=== PATIENT | female | born 1990 | race Caucasian/White ===

== ENCOUNTER 2019-07-20 11:00 | Emergency (ER) | payer OTHER, BC, SELFPAY ==
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
[2019-07-20 11:09] VITALS: BP 156/78; PULSE 123; RESP 20; TEMP 37.1; O2SAT 100
[2019-07-20 11:30] VITALS: BP 119/69; PULSE 93; RESP 16; O2SAT 100
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
[2019-07-20 13:00] VITALS: BP 119/90; PULSE 93; RESP 20; O2SAT 100
[2019-07-20 14:00] VITALS: BP 127/70; PULSE 88; RESP 18; O2SAT 100
[2019-07-20 14:10] LABS: Estimated CRCL calculation 144 ml/min; Estimated Glomerular Filt Rate > 60
[2019-07-20 15:00] VITALS: BP 143/87; PULSE 90; RESP 16; O2SAT 98
== END 2019-07-20 15:00 | disposition home or self-care (01) ==
PROVIDERS: Emergency Provider Emergency Medicine; PCP Family Medicine
DX: S16.1XXA Strain of muscle, fascia and tendon at neck level, initial encounter (principal); S39.012A Strain of muscle, fascia and tendon of lower back, initial encounter; S80.02XA Contusion of left knee, initial encounter; J45.909 Unspecified asthma, uncomplicated; V43.52XA Car driver injured in collision with other type car in traffic accident, initial encounter
CPT/HCPCS: 36415; 71101; 72125; 72132; 73562; 73610; 74177; 81025; 96365; 99284; J0131; Q9967

== ENCOUNTER 2019-08-12 13:08 | Outpatient (CLI) | payer BC, SELFPAY ==
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
== END 2019-08-12 13:09 | disposition home or self-care (01) ==
PROVIDERS: PCP Family Medicine; Visit Provider Student in an Organized Health Care Education/Training Program
DX: N63.0 Unspecified lump in unspecified breast (principal); N60.01 Solitary cyst of right breast
CPT/HCPCS: 76641

== ENCOUNTER 2019-09-04 17:30 | Outpatient (CLI) | payer OTHER, BC, SELFPAY ==
--- NOTE | ~2019-09-04 | MR_ITS ---
EXAMINATION: MR cervical spine wo con DATE: 09/04/2019 18:15 INDICATION: Neck and shoulder pain. TECHNIQUE: Magnetic resonance imaging (MRI) of the cervical spine was performed without intravenous c ontrast. Sequences included sagittal T2-weighted FSE, sagittal STIR FSE, sagittal T1-weighted FSE, ax ial MERGE, and axial T2-weighted FSE. COMPARISON: CT cervical spine 07/20/2019 FINDINGS: Bone alignment is normal. Vertebral body heights and intervertebral disc heights are normal . The spinal cord signal intensity is normal. The following disc levels are specifically discussed: C2-C3 through C6-C7: The disc does not extend beyond the endplate margin. There is no uncovertebral j oint osteoarthritis. There is no facet joint osteoarthritis. There is no neural foraminal stenosis. T here is no central canal stenosis. C7-T1: The disc does not extend beyond the endplate margin. There is no uncovertebral joint osteoarth ritis. There is mild bilateral facet joint osteoarthritis. There is no neural foraminal stenosis. The re is no central canal stenosis. IMPRESSION: 1. 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 Reviewed, dictated and finalized at location E.
== END 2019-09-04 17:31 | disposition home or self-care (01) ==
LOC: ANHIMG 17:31
PROVIDERS: PCP Family Medicine; Visit Provider Physician Assistant
DX: M50.323 Other cervical disc degeneration at C6-C7 level (principal)
CPT/HCPCS: 72141

== ENCOUNTER 2019-09-09 16:35 | Outpatient (CLI) | payer OTHER, BC, SELFPAY ==
--- NOTE | ~2019-09-09 | MR_ITS ---
EXAMINATION: MR shoulder LT wo con DATE: 09/09/2019 17:08 INDICATION: Left shoulder pain. TECHNIQUE: Magnetic resonance imaging (MRI) of the left shoulder was performed without intravenous co ntrast. Sequences included axial PD-weighted FS FSE, coronal oblique PD-weighted FS FSE and T2-weight ed FS FSE, and sagittal oblique T2-weighted FS FSE and T1-weighted FSE. COMPARISON: None. FINDINGS: Coracoacromial arch: The acromion undersurface is curved in morphology with anterior hook (type III). The acromioclavicula r joint demonstrates tiny osteophytes. No subacromial/subdeltoid bursitis. Rotator cuff: There is mild supraspinatus and infraspinatus tendinopathy. Teres minor tendon is normal. Subscapular is tendon is normal. No tear. There is no asymmetric fatty atrophy of the rotator cuff muscle bellies . Biceps tendon and glenoid labrum: Biceps tendon is in bicipital groove. Intra-articular biceps tendon is normal. The glenoid labrum is intact. Fluid: There is no glenohumeral joint effusion. Bones/cartilage: Glenoid cartilage is normal. Humeral head cartilage is normal. IMPRESSION: 1. Mild rotator cuff tendinopathy. No tear. 2. Mild acromioclavicular joint osteoarthritis. Reviewed, dictated and finalized at location A.
== END 2019-09-09 16:36 | disposition home or self-care (01) ==
PROVIDERS: PCP Family Medicine; Visit Provider Physician Assistant
DX: M25.519 Pain in unspecified shoulder (principal); M54.2 Cervicalgia; M19.012 Primary osteoarthritis, left shoulder
CPT/HCPCS: 73221

== ENCOUNTER 2020-08-06 07:32 | Outpatient (CLI) | payer BC, SELFPAY ==
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
== END 2020-08-06 07:33 | disposition home or self-care (01) ==
PROVIDERS: PCP Family Medicine; Visit Provider Obstetrics & Gynecology
DX: R19.01 Right upper quadrant abdominal swelling, mass and lump (principal)
CPT/HCPCS: 76642

== ENCOUNTER 2021-04-12 00:46 | Emergency (ER) | payer BC, SELFPAY ==
--- NOTE | 2021-04-12 00:50 | PC.NURSE ---
Pt c/o itching and hives every night x 3 nights, along with nvd. skin pink/dry. Speech clear. Resps even, nonlabored without wheezing noted. 

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
== END 2021-04-12 01:22 | disposition left against medical advice (07) ==
LOC: ANHED 01:21
PROVIDERS: PCP Family Medicine
DX: Z53.21 Procedure and treatment not carried out due to patient leaving prior to being seen by health care provider (principal)
CPT/HCPCS: 99199

== ENCOUNTER 2021-07-29 04:50 | Emergency (ER) | payer BC, SELFPAY ==
--- NOTE | ~2021-07-29 | XR_ITS ---
EXAMINATION: XR chest 2V DATE: 07/29/2021 07:03 INDICATION: Cough and right-sided chest pain TECHNIQUE: PA and lateral views of the chest are obtained. COMPARISON: 04/08/2005 FINDINGS: The lungs are free of acute opacities. There is no pleural effusion or pneumothorax. The ca rdiomediastinal silhouette is normal. The visualized bones and soft tissues are unremarkable. IMPRESSION: 1. No acute cardiopulmonary abnormality. Reviewed, dictated and finalized at location A.
[2021-07-29 04:57] VITALS: BP 122/74; PULSE 98; RESP 18; TEMP 36.7; O2SAT 100
[2021-07-29 05:37] LABS: Alanine Aminotransferase 26 U/L (4-35); Albumin Level 4.7 g/dL (3.5-5.1); Alkaline Phosphatase 85 U/L (38-126); Anion Gap 11 mmol/L (8-16); Appearance Urine Clear (Clear); Aspartate Amino Transferase 26 U/L (14-36); Bilirubin Urine Negative (Negative); Blood Urea Nitrogen 8 mg/dL (7-17); Blood Urine Negative (Negative); Calcium 9.2 mg/dL (8.4-10.2); Carbon Dioxide 24 mmol/L (22-30); Chloride 102 mmol/L (98-107); Color Urine Yellow (Yellow); Estimated CRCL calculation 136 ml/min; Estimated Glomerular Filt Rate > 60; Glucose 126 mg/dL (65-110); Glucose Urine UA Negative (Negative); Ketones Urine Negative (Negative); Leukocyte Esterase Ur Negative LEU/UL (Negative); Nitrate Urine Negative (Negative); Potassium 3.6 mmol/L (3.4-5.0); Protein Urine 1+ mg/dL (Negative); Sodium 137 mmol/L (137-145); Urobilinogen Urine 0.2 mg/dL (<2.0)
[2021-07-29 05:43] LABS: Mucus Urine Heavy /lpf; Squamous Epithelial Cell Urine Many /hpf (Few); WBC Urine 0-3 /hpf
[2021-07-29 05:44] LABS: Basophils Percent Auto 0.2 % (0.2-1.2); Eosinophils Percent Auto 0.2 % (0-4.4); Hematocrit 35.6 % (37.0-47.0); Hemoglobin 12.3 g/dL (12.0-15.0); Immature Granulocyte Percent A 0.5 % (0-0.5); Lymphocytes Absolute Auto 1.73 K/mm3 (0.9-3.2); Lymphocytes Percent Auto 9.2 % (18.3-44.2); Mean Corpuscular HGB Conc 34.6 g/dl (32-36); Mean Corpuscular Hemoglobin 31.6 pg (26-34); Mean Corpuscular Volume 91.5 fl (80-100); Mean Platelet Volume 10.6 fl (7.4-10.4); Monocytes Absolute Auto 1.7 K/mm3 (0.1-0.6); Monocytes Percent Auto 8.9 % (2.6-8.5); Neutrophils Absolute Auto 15.2 K/mm3 (1.3-6.7); Platelet Count Result 270 k/mm3 (150-375); Red Blood Count 3.89 M/mm3 (4.2-5.4); Red Cell Distribution Width 11.3 % (11.5-14.5); White Blood Count 18.8 K/mm3 (4.5-10.0)
[2021-07-29 05:50] LABS: Add Urine Microscopic? YES
[2021-07-29 06:02] VITALS: BP 120/75; PULSE 97; RESP 18; O2SAT 100
[2021-07-29 06:06] VITALS: O2SAT 100
--- NOTE | 2021-07-29 06:52 | ED.GENADULT ---
HPI - General Adult General Chief complaint: Back Pain/Injury <Jacob Thakur DO - Last Filed: 07/29/21 07:13> Stated complaint: Back Pain <Jacob Thakur DO - Last Filed: 07/29/21 07:13> Time Seen by Provider: 07/29/21 06:47 <Jacob Thakur DO - Last Filed: 07/29/21 07:13> Source: patient <Jacob Thakur DO - Last Filed: 07/29/21 07:13> Mode of arrival: ambulatory <Jacob Thakur DO - Last Filed: 07/29/21 07:13> Limitations: no limitations <Jacob Thakur DO - Last Filed: 07/29/21 07:13> History of Present Illness HPI narrative: 30-year-old female presents emergency room secondary cough congestion. She is complaining of significant pain to the right lateral and posterior chest wall area. Hurts worse when she moves or coughs. Been having chills and fevers. She has been vaccinated for COVID. She states that her child's daycare there are 5 children who are sick with what they said was flu . <Jacob Thakur DO - Last Filed: 07/29/21 07:13> Related Data Allergies/adverse reactions: Allergies Allergy/AdvReac Type Severity Reaction Status Date / Time No Known Allergies Allergy Unknown Uncoded 07/29/21 06:08 <Jacob Thakur DO - Last Filed: 07/29/21 07:13> Review of Systems Review of Systems: CONSTITUTIONAL: Having fevers as well as diffuse body aches EYES: Denies visual changes, redness, or discharge. ENT: Denies rhinorrhea, congestion, sore throat, or otalgia. CARDIOVASCULAR: Denies chest pain, palpitations, or edema. RESPIRATORY: Cough with pain to the right side of the chest GASTROINTESTINAL: Denies abdominal pain, nausea, vomiting, or diarrhea. GENITOURINARY: Denies dysuria or hematuria. SKIN: Denies rash or itching. MUSCULOSKELETAL: Denies back pain, joint pain, or myalgia. NEUROLOGIC: Denies headache, numbness, or weakness. PSYCHIATRIC: Denies anxiety or depression. <Jacob Thakur DO - Last Filed: 07/29/21 07:13> PMFSH Past Medical History Medical History: Medical History (Updated 07/29/21 @ 07:10 by Jacob Thakur DO) History of asthma <Jacob Thakur DO - Last Filed: 07/29/21 07:13> Family History Family History: Family History Mother Family history of thyroid disease Sibling Family history of thyroid disease Father Family history of obesity Hypertension Grandparent Hypertension Family history of cardiovascular disease Family history of malignant neoplasm Other No family history of hypertension No family history of malignant neoplasm <Jacob Thakur DO - Last Filed: 07/29/21 07:13> Social History Social History: Social History Alcohol intake: never Substance use: never Gender identity (if verbalized by the patient): Female <Jacob Thakur DO - Last Filed: 07/29/21 07:13> Exam Narrative: APPEARANCE: Ill-appearing Head normocephalic and atraumatic. EYES: PERRLA/EOMI, conjunctivae very clear. NOSE: Normal with no drainage EARS:TMS clear [place], with good light reflex. THROAT: Pharynx clear, no exudate. NECK: Supple. No adenopathy, no masses. RESPIRATORY: Airway patent, respirations nonlabored. Scattered rhonchi in the right mid to lower lung pearson. CARDIOVASCULAR: Regular rate and rhythm without murmurs, rubs, or gallops. ABDOMINAL: Soft, nontender, nondistended, no hepatosplenomegaly Musculoskeletal: Moves all extremities. Strength/ROM intact, No edema, No calf tenderness. NEURO: Alert. Cranial nerves II through XII intact. Normal gait. Good coordination. Nonfocal examination. SKIN:: Warm, dry. Normal Color PSYCHIATRIC: Normal affect/mood, normal interaction <Jacob Thakur DO - Last Filed: 07/29/21 07:13> Course Course Emergency Course: I did not take over patient's care. I did not take part in care for this visit. Patient evaluated and treated by
[2021-07-29] MEDS: KETOROLAC 30 MG/ML VIAL (*BKC) IV PUSH (07:19)
[2021-07-29 07:22] VITALS: BP 122/70; PULSE 90; RESP 18; O2SAT 97
[2021-07-29 08:43] LABS: SARS-CoV-2 RNA PCR Negative
== END 2021-07-29 07:30 | disposition home or self-care (01) ==
PROVIDERS: Emergency Provider Emergency Medicine; PCP Family Medicine
DX: J18.9 Pneumonia, unspecified organism (principal); Z20.822 Contact with and (suspected) exposure to COVID-19; J45.909 Unspecified asthma, uncomplicated
CPT/HCPCS: 36415; 71046; 80053; 81001; 81025; 85025; 96374; 99284; C9803; J1885; U0003; U0005

== ENCOUNTER 2022-04-11 11:24 | Emergency (ER) | payer BC, SELFPAY ==
[2022-04-11 11:36] VITALS: BP 127/78; PULSE 84; RESP 18; TEMP 36.2; O2SAT 99
--- NOTE | 2022-04-11 12:51 | ED.URI ---
HPI - URI/Sore Throat General Chief Complaint: Upper Respiratory Infection Stated Complaint: Cough,Congestion,Bilateral Ear Irritation Time Seen by Provider: 04/11/22 12:51 Source: patient, RN notes reviewed and old records reviewed Mode of arrival: ambulatory Limitations: no limitations History of Present Illness HPI Narrative: 31-year-old female presents to the [facility] with complaints of cough, congestion, bilateral ear discomfort. Has been treating herself for the last 2 and half weeks. Patient is scheduled for a tummy tuck in 1 week in wants to be better. Related Data Allergies Allergy/AdvReac Type Severity Reaction Status Date / Time No Known Allergies Allergy Unknown Uncoded 04/11/22 12:51 Review of Systems Review of Systems: All systems reviewed & are unremarkable except as noted in HPI and below Constitutional: Constitutional: Reports no additional constitutional complaints Eyes: Eyes: Reports no additional eye complaints ENT: Reports as per HPI and Reports nasal congestion Cardiovascular: Cardiovascular: Reports no additional cardiovascular complaints, Denies chest pain and Denies dyspnea Respiratory: Respiratory: Reports as per HPI, Denies chest congestion, Reports cough, Denies dyspnea and Reports wheezing Gastrointestinal: Gastrointestinal: Reports no additional gastrointestinal complaints, Denies abdominal pain, Denies nausea and Denies vomiting Musculoskeletal: Musculoskeletal: Reports no additional musculoskeletal complaints Integumentary/Breasts: Skin/Breast: Reports system reviewed and no additional complaints, except as docu Neurologic: Reports system reviewed and no additional complaints, except as documented Psychiatric: Psychiatric: Reports no additional psychiatric complaints Allergic/Immunologic: Allergic/Immunologic: Reports no additional allergic/immunologic complaints [facility] Past Medical History Medical History (Updated 04/11/22 @ 12:59 by Lori Sanford APRN) History of asthma Family History Family History Mother Family history of thyroid disease Sibling Family history of thyroid disease Father Family history of obesity Hypertension Grandparent Hypertension Family history of cardiovascular disease Family history of malignant neoplasm Other No family history of hypertension No family history of malignant neoplasm Social History Social History Alcohol intake: never Substance use: never Gender identity (if verbalized by the patient): Female Comments At the time of my signature, I reviewed and agree with the nursing past medical, surgical, social, and family history. There is no relevant family history pertinent to the patient complaint. Exam Const: General: cooperative, healthy appearing, comfortable, no acute distress, well developed, alert and well nourished Nutritional Appearance: well nourished and obese Orientation/consciousness: patient oriented x3 Limitations: no limitations HENMT: Head: normal to inspection Ears: hearing grossly normal bilaterally and external ears normal Face/Nose/Sinus: Normal external nose present, Normal nares present, Abnormal mucous membranes and turbinates present boggy and erythematous, Nasal discharge present and normal facial exam Face and sinus: normal facial exam Mouth: Yes Normal oral and palatal mucosa present, Yes lip normal and Yes moist mucous membranes Throat: posterior oropharynx normal and uvula midline Eyes: General: appearance normal, both eyes and all related structures Alignment and Position: alignment normal Periorbital: periorbital findings normal Conjunctivae: conjunctivae normal Pupils: Equal, round and reactive pupils present EOM: EOMs intact bilaterally Neck: Neck: normal visual inspection, full ROM, no lymphadenopathy and no meningeal signs Chest: Chest palpation & inspection: normal
== END 2022-04-11 13:16 | disposition home or self-care (01) ==
PROVIDERS: Emergency Provider Nurse Practitioner
DX: J32.9 Chronic sinusitis, unspecified (principal); J40 Bronchitis, not specified as acute or chronic
CPT/HCPCS: 99213; G0463

== ENCOUNTER 2023-03-19 10:27 | Outpatient (CLI) | payer BC, SELFPAY ==
[2023-03-19 10:43] LABS: Hematocrit 38.4 % (37.0-47.0); Hemoglobin 12.7 g/dL (12.0-15.0)
== END 2023-03-19 10:28 | disposition home or self-care (01) ==
PROVIDERS: PCP Family Medicine; Visit Provider Obstetrics & Gynecology
DX: N92.6 Irregular menstruation, unspecified (principal); Z01.818 Encounter for other preprocedural examination
CPT/HCPCS: 36415; 85014; 85018

== ENCOUNTER 2023-03-23 00:49 | Day surgery (SDC) | payer BC, SELFPAY ==
[2023-03-16 08:53] VITALS: BMI 36.8
--- NOTE | 2023-03-16 08:57 | PC.NURSE ---
Report to the Outpatient Waiting Room, entrance under the green pavilion located off [facility], at time 1:30 on date 03/23/23. Planned Procedure Time: 3:30. Time changes happen often and if your time is changed the preop area will call you the afternoon before. - You and your visitor will be asked to self-screen and do not enter if you have any COVID symptoms. - A mask is optional within the hospital at this time. Patients may have clear liquids (water, carbonated beverages, clear teas, apple juice) until 3 hours prior to surgery (12:30) with a maximum of 20 ounces. - No food from midnight until time of surgery Take the following medications with a SIP of water the morning of surgery: N/A DO NOT STOP ANY OF YOUR OTHER PRESCRIPTION MEDICATIONS PRIOR TO SURGERY ?EXCEPT THE FOLLOWING Medications to discontinue per physician: N/A Date to take last dose: N/A Please no make-up, nail faroese, hairspray, perfume, deodorant, or body powder the day of surgery. No jewelry (including any body piercings) or valuables the day of surgery, leave them at home. Please take a shower or bath the night before, or the morning of, surgery with an antibacterial soap. Wear comfortable, loose fitting clothing. - Jewelry must be removed prior to entering the operating room. Rings and piercings that are not removed may be cut off. - The hospital will not accept responsibility for valuables. - Please leave all valuables, including medications, at home the day of surgery. If you are going home after surgery, a licensed tractor trailer moving van driver must drive you home. - NO public transportation without another adult if you receive anesthesia. - We recommend that an adult stay with you for 24 hours following discharge. - We also recommend that you do not drive, make important decision, drink alcoholic beverages, or take any drugs that were not prescribed by your health care provider for at least 24 hours after your discharge time. Follow any additional instructions given to you from your surgeon. If you or anyone in your household have experienced Covid symptoms in the past week, please notify your surgeon or the nurse liaison at the phone number below for possible testing. Telephone instructions given to PT - POLO JONES and asked if any additional questions and then verbalized understanding. Patient advised to call surgeon office or pre surgery nurse liaison [phone] if any additional questions.
--- NOTE | 2023-03-20 07:01 | PM.IMHP ---
H&P: HPI History of Present Illness Date/Time: 03/20/23 07:01 Chief Complaint: excessive irregular bleeding Narrative: this is a 32-year-old female admitted for removal of IUD hysteroscopy dilatation curettage and Sommer ablation. The patient has had irregular bleeding despite placement of an IUD. She understands this is not a form of control but her 's as vasectomy. Risks and benefits of the procedure reviewed including not exclusive of , aspiration burned, bleeding, transfusion, perforation under bowel, bladder, ureters, or other internal organs with the need for open laparotomy. She received the ACOG handout entitled hysteroscopy and dilatation curettage respectively. She received the handout on the Sommer. She had all questions answered and asked to proceed PMFSH Past Medical History Medical History Acute asthma exacerbation Acute bronchitis Asthma Cervical radiculopathy Contusion of knee Ecchymosis Hair loss History of asthma Multiple contusions of trunk Sprain of cervical neck Tendonitis of left rotator cuff Trigger point of left shoulder region Trigger point with neck pain Family History Family History Mother Family history of thyroid disease Sibling Family history of thyroid disease Father Family history of obesity Hypertension Grandparent Hypertension Family history of cardiovascular disease Family history of malignant neoplasm Other No family history of hypertension No family history of malignant neoplasm Social History Social History Smoking status: Never smoker Alcohol intake: current Alcohol use details: RARE Substance use: never Substance use type: does not use Lack of Transportation: No Lack of Food: Never True Current Housing: I Have Housing Concerned About Future Housing: No Difficulty Paying Gas/Electric Bills: No Difficulty Paying for Meds: No Currently Unemployed: No Education: Trade/Vocational Certificate Difficulty w/ Childcare or Family Care: No Living arrangements: with family Gender identity (if verbalized by the patient): Female Spiritual care concerns: No Meds Home Medications and Allergies Home Medications Medication Instructions Recorded Confirmed Type No Home Medications 03/16/23 03/16/23 History Allergies Allergy/AdvReac Type Severity Reaction Status Date / Time No Known Allergies Allergy Verified 03/16/23 09:06 Exam Const: General: cooperative, healthy appearing and comfortable Nutritional Appearance: average body habitus Orientation/consciousness: oriented to person, oriented to place and oriented to time Resp: Effort & Inspection: normal respiratory effort Cardio: Rate: regular rate Rhythm: regular rhythm Heart sounds: S1 normal heart sound present and S2 normal heart sound present GI: Inspection: normal to inspection : External Female Exam: normal external appearance Speculum Exam - Vagina: normal appearance of the vagina Speculum Exam - Cervix: normal appearance of the cervix Bimanual exam- vagina & uterus: enlarged Bimanual Exam- Adnexa, other: normal adnexae Assessment and Plan Assessment and plan (1) Heavy vaginal bleeding due to contraceptive implant use: Status: Acute Plan removal of IUD. Hysteroscopy / dilatation curettage/Sommer ablation
--- NOTE | 2023-03-23 06:19 | WPDHPUPDATE1 ---
History and Physical Update Update Date/Time: 03/23/23 06:19 History and Physical has been reviewed, including an updated exam of the patient. There are NO changes in the patient's condition. Risks, benefits, and alternatives have been discussed and questions answered. Patient agrees to proceed with procedure.
[2023-03-23] MEDS: LACTATED RINGERS 1,000 ML 30 ML IV CONT (14:00)
--- NOTE | 2023-03-23 14:05 | P.PNAN_ITS ---
Anes - Initial Pre Proc Eval Procedure: Operation Date: 03/23/23 15:30 Proposed Procedures p Hysteroscopy Dilation and Curettage with Sommer Endometrial Ablation, Removal of Intrauterine Device - Kamar Huff MD Date/Time: 03/23/23 14:05 Surgeon: Kamar Huff MD Pre Op Diagnosis: Irg Bleeding, Pelvic Pain Patient Data Age: 32 Gender: F Height: 1.55 m Weight: 88.45 kg Allergies Allergy/AdvReac Type Severity Reaction Status Date / Time No Known Allergies Allergy Verified 03/23/23 14:07 Home Medications Medication Instructions Recorded Confirmed Type hydrocodone 5 mg-acetaminophen 325 1 tablet PO Q4H PRN pain #14 tabs 03/23/23 Rx mg tablet Patient hx anesthesia problems: none Family hx anesthesia problems: none Results Review: All pre-operative results and documents have been reviewed as part of the pre- operative evaluation. [facility] Past Medical History Medical History Acute asthma exacerbation Acute bronchitis Asthma Cervical radiculopathy Contusion of knee Ecchymosis Hair loss History of asthma Multiple contusions of trunk Sprain of cervical neck Tendonitis of left rotator cuff Trigger point of left shoulder region Trigger point with neck pain Family History Family History Mother Family history of thyroid disease Sibling Family history of thyroid disease Father Family history of obesity Hypertension Grandparent Hypertension Family history of cardiovascular disease Family history of malignant neoplasm Other No family history of hypertension No family history of malignant neoplasm Social History Social History Smoking status: Never smoker Alcohol intake: current Alcohol use details: RARE Substance use: never Substance use type: does not use Lack of Transportation: No Lack of Food: Never True Current Housing: I Have Housing Concerned About Future Housing: No Difficulty Paying Gas/Electric Bills: No Difficulty Paying for Meds: No Currently Unemployed: No Education: Trade/Vocational Certificate Difficulty w/ Childcare or Family Care: No Living arrangements: with family Gender identity (if verbalized by the patient): Female Spiritual care concerns: No Anes - Eval Final PreProcedure Day of Procedure 03/23/23 14:05 Patient weight: obese Heart: regular rate and rhythm Lungs: clear to auscultation Airway: Mallampati scale class II Neurological: alert and oriented Last oral intake: >/= 8 hours ASA classification: II Emergent: no Anesthetic plan: proceed Anesthesia type and monitoring: general GIVS and standard monitoring Results Review: All pre-operative results and documents have been reviewed as part of the pre- operative evaluation. Informed Consent: The patient's anesthetic plan and its attendant risks and benefits were discussed with the patient/family/POA. Questions were solicited and answers provided to the satisfaction of the patient/family/POA.
[2023-03-23] MEDS: ACETAMINOPHEN 500 MG TABLET 1000 MG PO (14:14)
[2023-03-23] MEDS: LIDOCAINE HCL 1% LOCAL INJ 20 ML VIAL 10 ML INFILTRATE (14:25)
[2023-03-23 14:31] VITALS: BP 140/79; PULSE 85; RESP 16; TEMP 36.4; O2SAT 100; BMI 38.2
[2023-03-23 15:16] VITALS: BP 134/72; PULSE 90; RESP 15; O2SAT 100
--- NOTE | 2023-03-23 15:16 | W.PM.PROC2 ---
Procedure Note - Detailed Date of Procedure 03/23/23 Pre-op Diagnosis Irg Bleeding, Pelvic Pain Post-op Diagnosis Same Procedure Performed Removal of IUD /hysteroscopy/ dilatation and curettage /Sommer ablation Surgeon Kamar Huff MD Anesthesia MAC and Local Indications to 32-year-old female with irregular excessive bleeding Findings the IUD appeared to be in the position. Uterus sounded to 8.5cm. Thick irregular endometrial tissue was seen Description of Procedure the patient was prepped draped in the normal sterile fashion placed in dorsal lithotomy position. Under excellent IV sedation weighted speculum placed in posterior fornix vagina. Anterior lip of the cervix grasped with a single-tooth tenaculum. 2.5cc 1% xylocaine anesthesia placed at 2, 4, 8, 10:00 a.m. the cervix uterus sounded 8.5cm. Serial dilatation fragmented dilators performed followed by passage of of the day hysteroscope using normal saline as visualizing medium. No definitive abnormalities were seen. Photo documentation was undertaken. The uterus was scraped over the entire 360? until a good grating sound was heard. Those instruments were withdrawn and the Sommer instrument placed at the appropriate setting. The uterus was burned [id number] and the instruments removed. The patient was awakened went to recovery in satisfactory condition. All sponge, needle, instrument counts were correct. There were no immediate complications noted Estimated Blood Loss 5 Drains No Packing No Pathology Yes Complications No immediate complications Condition Stable Disposition PACU
[2023-03-23 15:30] VITALS: BP 135/84; PULSE 76; RESP 16; O2SAT 100
[2023-03-23 16:00] VITALS: BP 145/80; PULSE 78; RESP 17; O2SAT 100
[2023-03-23 16:30] VITALS: BP 129/73; PULSE 62; RESP 16; O2SAT 100
== END 2023-03-23 16:35 | disposition home or self-care (01) ==
PROVIDERS: PCP Family Medicine; Visit Provider Obstetrics & Gynecology
PROC: 0U5B8ZZ Destruction of Endometrium, Via Natural or Artificial Opening Endoscopic (ICD-10-PCS; CPT 58563; principal; 2023-03-23 15:30)
DX: N93.9 Abnormal uterine and vaginal bleeding, unspecified (principal); N85.8 Other specified noninflammatory disorders of uterus; R10.2 Pelvic and perineal pain; Z30.432 Encounter for removal of intrauterine contraceptive device; E66.9 Obesity, unspecified; Z68.38 Body mass index [BMI] 38.0-38.9, adult
CPT/HCPCS: 58563; 58301; 36415; 85014; 85018; 88305; A9270; J1885; J2250; J2405; J2704; J3010; J7120

== ENCOUNTER 2023-07-13 16:06 | Emergency (ER) | payer BC, SELFPAY ==
--- NOTE | ~2023-07-13 | XR_ITS ---
EXAMINATION: XR chest 2V 07/13/2023 16:40 INDICATION: Cough for 5 days PROCEDURE: 2 view chest COMPARISON: 07/29/2021 FINDINGS: The lungs are clear. The cardiomediastinal silhouette is within normal limits. There are no pleural effusions. There is no pneumothorax suspected. IMPRESSION: 1: NO ACUTE CARDIOPULMONARY DISEASE. Reviewed, dictated and finalized at location B.
[2023-07-13 16:22] VITALS: BP 137/89; PULSE 96; RESP 18; TEMP 37; O2SAT 100
--- NOTE | 2023-07-13 16:27 | ED.URI ---
HPI - URI/Sore Throat General Chief Complaint: Upper Respiratory Infection Stated Complaint: cold symptoms, chest congestion Time Seen by Provider: 07/13/23 16:27 Source: patient, RN notes reviewed and old records reviewed Mode of arrival: ambulatory Limitations: no limitations History of Present Illness HPI Narrative: 32-year-old female presents to the [facility] with viral symptoms cold symptoms since Sunday, 5 days. Reports a cough. States that she has used her albuterol. Denies any chest pain, shortness of breath. States that her kids were sick 2. Reports runny nose, denies any other symptoms Denies fevers Related Data Home Medications Medication Instructions Recorded Confirmed albuterol 90 mcg/actuation aerosol mcg inhalation 07/13/23 inhaler tirzepatide 7.5 mg/0.5 mL 7.5 mg subcut WEEKLY 07/13/23 07/13/23 subcutaneous pen injector (Danieleunconnie) Allergies Allergy/AdvReac Type Severity Reaction Status Date / Time No Known Allergies Allergy Verified 07/13/23 16:28 Review of Systems Review of Systems: All systems reviewed & are unremarkable except as noted in HPI and below Constitutional: Constitutional: Reports no additional constitutional complaints Eyes: Eyes: Reports no additional eye complaints ENT: Reports as per HPI and Reports nasal discharge Cardiovascular: Cardiovascular: Reports no additional cardiovascular complaints, Denies chest pain and Denies dyspnea Respiratory: Respiratory: Reports as per HPI, Denies chest congestion, Reports cough and Denies dyspnea Gastrointestinal: Gastrointestinal: Reports no additional gastrointestinal complaints, Denies abdominal pain, Denies nausea and Denies vomiting Musculoskeletal: Musculoskeletal: Reports no additional musculoskeletal complaints Integumentary/Breasts: Skin/Breast: Reports system reviewed and no additional complaints, except as docu Neurologic: Reports system reviewed and no additional complaints, except as documented Psychiatric: Psychiatric: Reports no additional psychiatric complaints Allergic/Immunologic: Allergic/Immunologic: Reports no additional allergic/immunologic complaints PMFSH Past Medical History Medical History Acute asthma exacerbation Acute bronchitis Asthma Cervical radiculopathy Contusion of knee Ecchymosis Hair loss History of asthma Multiple contusions of trunk Sprain of cervical neck Tendonitis of left rotator cuff Trigger point of left shoulder region Trigger point with neck pain Family History Family History Mother Family history of thyroid disease Sibling Family history of thyroid disease Father Family history of obesity Hypertension Grandparent Hypertension Family history of cardiovascular disease Family history of malignant neoplasm Other No family history of hypertension No family history of malignant neoplasm Social History Social History Smoking status: Never smoker Alcohol intake: current Alcohol use details: RARE Substance use: never Substance use type: does not use Lack of Transportation: No Lack of Food: Never True Current Housing: I Have Housing Concerned About Future Housing: No Difficulty Paying Gas/Electric Bills: No Difficulty Paying for Meds: No Currently Unemployed: No Education: Trade/Vocational Certificate Difficulty w/ Childcare or Family Care: No Living arrangements: with family Gender identity (if verbalized by the patient): Female Spiritual care concerns: No Comments At the time of my signature, I reviewed and agree with the nursing past medical, surgical, social, and family history. There is no relevant family history pertinent to the patient complaint. Exam Const: General: cooperative, healthy appearing, comfortable, no acute distress, well developed,
== END 2023-07-13 16:52 | disposition home or self-care (01) ==
PROVIDERS: Emergency Provider Nurse Practitioner; PCP Family Medicine
DX: J40 Bronchitis, not specified as acute or chronic (principal); R09.82 Postnasal drip; J45.909 Unspecified asthma, uncomplicated
CPT/HCPCS: 71046; 99213; G0463

== ENCOUNTER 2025-03-28 11:21 | Outpatient (CLI) | payer BC, SELFPAY ==
--- NOTE | ~2025-03-28 | XR_ITS ---
Examination: XR chest 2V Clinical History: J40 - Bronchitis, not specified as acute or chronic Comparison: 07/13/2023 Technique: PA and Lateral Findings: Cardiomediastinal silhouette normal size and configuration. Lungs clear. No acute bony abnormality. IMPRESSION: 1. No acute cardiopulmonary findings. Reviewed, dictated and finalized at location R. PING BENCH DIE MAKER
--- OUTSIDE RECORDS SUMMARY | 2025-03-28 11:23 | XMS_ITS | Clinical Summary ---
Author Organization [facility] Building [facility] Address [address] [place] [address] Care Team Providers Care Press Operator Instant Print Shop Name Role Phone Selin Crow MD Primary Care Provider [phone] Allergies No known active allergies Medications albuterol HFA (PROVENTIL HFA,VENTOLIN HFA,PROAIR HFA) 90 mcg/actuation inhaler INHALE 1 PUFF BY MOUTH EVERY 4 HOURS NEEDED FOR SHORTNESS OF BREATH OR WHEEZING 1 Active Symbicort 160-4.5 mcg/actuation inhaler INHALE 2 PUFFS BY MOUTH EVERY 12 HOURS NEEDED FOR ASTHMA. RINSE AND SPIT AFTER EACH USE TO PREVENT THRUSH 1 Active Breo Ellipta 200-25 mcg/dose diskus inhaler INHALE 1 PUFF BY MOUTH EVERY 24 HOURS 1 Active prochlorperazine (COMPAZINE) 10 mg tabletIndication s:Diarrhea, unspecified type,Hives Take 1 tablet (10 mg total) by mouth every 6 (six) hours as needed for nausea or vomiting 30 tablet 2 2 Active Additional Information Patient not taking.Reported on 04/04/2023 cyproheptadine (PERIACTIN) 4 mg tablet Take 1 tablet (4 mg total) by mouth 3 (three) times a day as needed for allergies 90 tablet 2 3 Active Additional Information Patient not taking.Reported on 04/04/2023 Active Problems No known active problems Surgical History Surgery Date Site/Laterality Comments SECTION APPENDECTOMY Medical History Medical History Date Comments Asthma Family History Medical History Relation Name Comments Alcohol abuse Other Arthritis Other Lung disease Other Relation Name Status Comments Other Social History Tobacco Use Types Packs/Day Years Used Date Smoking Tobacco: Never Smokeless Tobacco: Never Tobacco Cessation:Counseling Given: Not Answered Personal Safety Answer Date Recorded Getting School Help Needed Not on file 04/01 Comments Unknown Sex and Gender Information Value Date Recorded Sex Assigned at Not on file Legal Sex Female 8:49 PM JACK STRIP ASSEMBLER Gender Identity Not on file Sexual Orientation Not on file Last Filed Vital Signs Vital Sign Reading Time Taken Comments Blood Pressure 122/78 04/04/2023 10:34 AM JACK STRIP ASSEMBLER Pulse 76 04/04/2023 10:34 AM JACK STRIP ASSEMBLER Temperature 36.3 C (97.3 F) 04/04/2023 10:34 AM JACK STRIP ASSEMBLER Respiratory Rate - - Oxygen Saturation 98% 02/27/2017 1:59 PM JACK STRIP ASSEMBLER Inhaled Oxygen Concentration - - Weight 92.5 kg (204 lb) 04/04/2023 10:34 AM JACK STRIP ASSEMBLER Height 157.5 cm (5' 2) 04/04/2023 10:34 AM JACK STRIP ASSEMBLER Body Mass Index 37.31 04/04/2023 10:34 AM JACK STRIP ASSEMBLER Plan of Treatment Health Maintenance Due Date Last Done Comments Cervical Cancer Screening 1989 Depression Screening 1989 Hepatitis C Screening 1989 DTaP/Tdap/Td Vaccine (1 - Tdap) 2000 Varicella Vaccines (1 of 2 - 13+ 2-dose series) 2002 Hepatitis B Screening 08/24/2007 Regular Well Visit/Exam 18-64 08/24/2007 HPV Vaccines (1 - 3-dose SCD M series) 2016 Influenza Vaccine (#1) 2024 01/26/2016 Pneumococcal vaccine <65 Aged Out No longer eligible based on patient's age to complete this topic Insurance [facility] ACCESS CHOICE ANTHEM ACCESS CHOICE Care Teams Press Operator Instant Print Shop Relationship Specialty Start Date End Date Selin Crow MD [address] [place] [address] PCP - General Family Medicine 09/28/20
--- OUTSIDE RECORDS SUMMARY | 2025-03-28 11:23 | XMS_ITS | Encounter Summary ---
Author Organization [facility] Address [address] [place] [address] Phone Care Team Providers Care Recreation Worker Name Role Phone Selin Crow MD Primary Care Provider [phone] Encounter Details Date Type Department Care Team (Late st Contact Info) Description 10/13/2021 Orders Only [facility] Scanning, Provider Social History Tobacco Use Types Packs/Day Years Used Date Smoking Tobacco: Never Comments Unknown Sex and Gender Information Value Date Recorded Sex Assigned at Not on file Legal Sex Female 8:49 PM CASE OPERATOR Gender Identity Not on file Sexual Orientation Not on file documented as of this encounter Plan of Treatment Not on file documented as of this encounter Procedures Procedure Name Priority Date/Time Associated Diagnosis Comments SCAN - LABS 10/13/2021 documented in this encounter Results * SCAN - LABS (10/13/2021) us Provider Scanning Final Result documented in this encounter Visit Diagnoses Not on filedocumented in this encounter Care Teams Recreation Worker Relationship Specialty Start Date End Date Selin Crow MD [address] [place] [address] PCP - General Family Medicine 09/28/20 documented as of this encounter
--- OUTSIDE RECORDS SUMMARY | 2025-03-28 11:23 | XMS_ITS | Clinical Summary ---
Author Organization [facility] Health Address [address] [place] [address] Care Team Providers Care Auto Body Repair Estimator Name Role Phone Unavailable Primary Care Provider Unavailabl e Social History Tobacco Use Types Packs/Day Years Used Date Smoking Tobacco: Never Assessed Comments Unknown Sex and Gender Information Value Date Recorded Sex Assigned at Not on file Legal Sex Female 1:18 AM PST Gender Identity Not on file Sexual Orientation Not on file Plan of Treatment Not on file
--- OUTSIDE RECORDS SUMMARY | 2025-03-28 11:23 | XMS_ITS | Encounter Summary ---
Author Organization [facility] Health Address [address] [place] [address] Care Team Providers Care Potable Water Treatment Operator Name Role Phone Unavailable Primary Care Provider Unavailabl e Prior Encounters Date Type Department Care Team Description 05/05/2019 Converted CPS Chart Documents [facility] [address] [place] [address] <No scans attached> 05/05/2019 Converted 13x Documents [facility] [address] [place] [address] <No scans attached> Plan of Treatment Not on file Procedures Procedure Name Priority Date/Time Associated Diagnosis Comments 8 LIMITED ORAL EVALUATION - PROBLEM FOCUSED Routine 12/24/2017 2:00 AM CDT PANORAMIC RADIOGRAPHIC IMAGE Routine 12/24/2017 2:00 AM CDT SINGLE X-RAY Routine 12/24/2017 2:00 AM CDT Visit Diagnoses Not on file
== END 2025-03-28 11:22 | disposition home or self-care (01) ==
PROVIDERS: PCP Family Medicine; Visit Provider Student in an Organized Health Care Education/Training Program
DX: J40 Bronchitis, not specified as acute or chronic (principal)
CPT/HCPCS: 71046

== ENCOUNTER 2025-04-15 11:06 | Outpatient (CLI) | payer BC, SELFPAY ==
--- OUTSIDE RECORDS SUMMARY | 2025-04-15 11:31 | XMS_ITS | Clinical Summary ---
Author Organization [facility] Health Address [address] [place] [address] Care Team Providers Care Field Hockey Coach Name Role Phone Unavailable Primary Care Provider [...]
--- OUTSIDE RECORDS SUMMARY | 2025-04-15 11:31 | XMS_ITS | Encounter Summary ---
Author Organization [facility] Health Address [address] [place] [address] Care Team Providers Care Microsoft Infrastructure Consultant Name Role Phone Unavailable Primary Care Provider Unavailabl e Prior Encounters Date Type Department Care Team Description 05/05/2019 Converted CPS Chart Documents [facility] [address] [place] [address] <No scans attached> 05/05/2019 Converted 13x Documents [facility] [address] [place] [address] <No scans attached> Plan of Treatment Not on file Procedures Procedure Name Priority Date/Time Associated Diagnosis Comments 8 LIMITED ORAL EVALUATION - PROBLEM FOCUSED Routine 12/24/2017 2:00 AM CDT PANORAMIC RADIOGRAPHIC IMAGE Routine 12/24/2017 2:00 AM CDT SINGLE X-RAY Routine 12/24/2017 2:00 AM CDT Visit Diagnoses Not on file
--- OUTSIDE RECORDS SUMMARY | 2025-04-15 11:31 | XMS_ITS | Encounter Summary ---
Author Organization [facility] Address [address] [place] [address] Phone Care Team Providers Care Multimedia Assistant Name Role Phone Selin Crow MD Primary Care Provider [phone] Encounter Details Date Type Department Care Team (Late st Contact Info) Description 10/13/2021 Orders Only [facility] Scanning, Provider Social History Tobacco Use Types Packs/Day Years Used Date Smoking Tobacco: Never Comments Unknown Sex and Gender Information Value Date Recorded Sex Assigned at Not on file Legal Sex Female 8:49 PM HEAD TELLER Gender Identity Not on file Sexual Orientation [...] on filedocumented in this encounter Care Teams Multimedia Assistant Relationship Specialty Start Date End Date Selin Crow MD [address] [place] [place] [address] PCP - General Family Medicine 09/28/20 documented as of this encounter
--- OUTSIDE RECORDS SUMMARY | 2025-04-15 11:31 | XMS_ITS | Clinical Summary ---
Author Organization [facility] Office Building [facility] Address [address] [place] [address] Care Team Providers Care Barrel Filler Head Name Role Phone Selin Crow MD Primary Care Provider [phone] Allergies No known active allergies Medications albuterol [...] on file Legal Sex Female 8:49 PM ACCOUNTS PAYABLE SUPERVISOR Gender Identity Not on file Sexual Orientation Not on file Last Filed Vital Signs Vital Sign Reading Time Taken Comments Blood Pressure 122/78 04/04/2023 10:34 AM ACCOUNTS PAYABLE SUPERVISOR Pulse 76 04/04/2023 10:34 AM ACCOUNTS PAYABLE SUPERVISOR Temperature 36.3 C (97.3 F) 04/04/2023 10:34 AM ACCOUNTS PAYABLE SUPERVISOR Respiratory Rate - - Oxygen Saturation 98% 02/27/2017 1:59 PM ACCOUNTS PAYABLE SUPERVISOR Inhaled Oxygen Concentration - - Weight 92.5 kg (204 lb) 04/04/2023 10:34 AM ACCOUNTS PAYABLE SUPERVISOR Height 157.5 cm (5' 2) 04/04/2023 10:34 AM ACCOUNTS PAYABLE SUPERVISOR Body Mass Index 37.31 04/04/2023 10:34 AM ACCOUNTS PAYABLE SUPERVISOR Plan of Treatment Health Maintenance Due Date [...] patient's age to complete this topic Insurance [facility] ACCESS CHOICE ANTHEM ACCESS CHOICE Care Teams Barrel Filler Head Relationship Specialty Start Date End Date Selin Crow MD [address] [place] [address] PCP - General Family Medicine 09/28/20
[2025-04-15 18:36] LABS: Hematocrit 39.6 % (37.0-47.0); Hemoglobin 12.8 g/dL (12.0-15.0); Immature Granulocyte Percent A 0.2 % (0-0.5); Immature Platelet Fraction Pct 6.6 % (0.9-11.2); Lymphocytes Absolute Auto 2.47 K/mm3 (0.9-3.2); Mean Corpuscular HGB Conc 32.3 g/dl (32-36); Mean Corpuscular Hemoglobin 31.0 pg (26-34); Mean Corpuscular Volume 95.9 fl (80-100); Nucleated Red Blood Cells Absolute Auto 0.000 K/mm3 (0.0-0.012); Nucleated Red Blood Cells Perc 0.0 % (0.0-0.2); Platelet Count Result 266 k/mm3 (150-375); Red Blood Count 4.13 M/mm3 (4.2-5.4); White Blood Count 6.2 K/mm3 (4.5-10.0)
[2025-04-15 18:42] LABS: Hemoglobin A1C 5.4 % (<5.7)
[2025-04-15 19:07] LABS: Alanine Aminotransferase 30 U/L (6-35); Albumin Level 4.7 g/dL (3.5-5.1); Alkaline Phosphatase 90 U/L (38-126); Anion Gap 10 mmol/L (4-12); Aspartate Amino Transferase 43 U/L (14-36); Bilirubin,Total 0.9 mg/dL (0.2-1.3); Blood Urea Nitrogen 12 mg/dL (7-17); Calcium 9.9 mg/dL (8.4-10.2); Carbon Dioxide 25 mmol/L (22-30); Chloride 104 mmol/L (98-107); Cholesterol 269 mg/dL (0-200); Estimated Glomerular Filt Rate > 60; Glucose 95 mg/dL (65-110); HDL Direct 55 mg/dL; Potassium 4.6 mmol/L (3.4-5.0); Sodium 139 mmol/L (137-145); Total Protein 8.0 g/dL (6.3-8.2); Triglycerides 169 mg/dL (<150)
[2025-04-15 19:40] LABS: Thyroid Stimulating Hormone 1.380 uIU/mL (0.465-4.680)
== END 2025-04-15 11:07 | disposition home or self-care (01) ==
LOC: ANHGOSHLAB 11:06
PROVIDERS: PCP Family Medicine; Visit Provider Student in an Organized Health Care Education/Training Program
DX: Z00.00 Encounter for general adult medical examination without abnormal findings (principal); Z13.0 Encounter for screening for diseases of the blood and blood-forming organs and certain disorders involving the immune mechanism; E66.9 Obesity, unspecified; E78.2 Mixed hyperlipidemia
CPT/HCPCS: 36415; 80053; 80061; 83036; 84443; 85025; 85055